=== PATIENT | male | born 1945 | race African-American/Black ===

== ENCOUNTER 2021-06-13 16:23 | Observation (INO) | payer MEDICARE, OTHER ==
[~2021-06-13] VITALS: Ht 188 cm; Wt 81.1 kg
[2021-06-13] MEDS ORDERED: THEO400T4 PO (16:35)
[2021-06-13] MEDS ORDERED: ISOVUE-370 76% 100ML VIAL As Ordered ONE (16:50)
[2021-06-13 16:54] LABS: BASO % 0.2 % (0.0-1.0); EOS # 0.1 10^3/uL (0.0-0.5); EOS % 3.4 % (0.0-3.0); HEMATOCRIT 40.1 % (42.0-52.0); HEMOGLOBIN 13.6 g/dl (13.5-17.5); LYMPH # 1.4 10^3/uL (1.5-5.0); LYMPH % 33.3 % (24.0-44.0); MEAN CORPUSCULAR HEMOGLOBIN 32.7 pg (27.0-33.0); MEAN CORPUSCULAR HGB CONC 33.9 g/dl (32.0-36.5); MEAN CORPUSCULAR VOLUME 96.4 fl (80.0-96.0); MONO # 0.5 10^3/uL (0.0-0.8); NEUTROPHILS # 2.1 10^3/uL (1.5-8.5); NEUTROPHILS % 51.9 % (36.0-66.0); PLATELET COUNT, AUTOMATED 164 10^3/uL (150-450); RED BLOOD COUNT 4.16 10^6/uL (4.30-6.10); WHITE BLOOD COUNT 4.1 10^3/uL (4.0-10.0)
--- NOTE | 2021-06-13 17:00 | REP ---
INDICATION: CVA. COMPARISON: No comparison chest x-ray. TECHNIQUE: Portable upright AP chest radiograph. FINDINGS: The lungs are well inflated and clear. The pleural angles are sharp. Heart is enlarged. Pulmonary vasculature is not increased. Monitoring electrodes are seen. No acute bony abnormality.. IMPRESSION: Mild cardiomegaly. Otherwise no acute disease.. <Electronically signed by Luis Manuel Bolivar > 06/13/21 [id number]
--- NOTE | 2021-06-13 17:10 | REPVR ---
PROCEDURE INFORMATION: Exam: CT Head Without Contrast Exam date and time: 06/13/2021 4:54 PM Age: 76 years old Clinical indication: Weakness, facial; Additional info: CVA - nursing interventions must not delay CT TECHNIQUE: Imaging protocol: Computed tomography of the head without contrast. Radiation optimization: All CT scans at this facility use at least one of these dose optimization techniques: automated exposure control; mA and/or kV adjustment per patient size (includes targeted exams where dose is matched to clinical indication); or iterative reconstruction. Other technique: STROKE PROTOCOL was implemented. COMPARISON: No relevant prior studies available. FINDINGS: Brain: No intracranial mass, mass effect or midline shift. No acute intracranial hemorrhage. No CT evidence of acute cortical infarct. Ventricles, cisterns, and sulci are normal in size for age. No concerning asymmetric abnormal MCA density. Physiologic basal ganglia calcifications are present. Paranasal sinuses: Imaged paranasal sinuses are normally aerated. Mastoid air cells: Mastoid air cells and middle ear structures are normally aerated. Orbital cavity: Imaged orbits are unremarkable. Bones/joints: No calvarial fracture or destructive process. Soft tissues: No focal extracranial soft tissue swelling. IMPRESSION: No acute or concerning focal intracranial abnormality. ASSESSMENT: ASPECTS ([place] Stroke Program Early CT Score) is 10. Electronically signed by: Vince Wild On 06/13/2021 17:09:40 PM
[2021-06-13 17:20] LABS: INR 0.92; PROTHROMBIN TIME 12.6 SECONDS (12.5-14.3)
--- NOTE | 2021-06-13 17:20 | REPVR ---
PROCEDURE INFORMATION: Exam: CT Angiography Neck With Contrast Exam date and time: 06/13/2021 4:54 PM Age: 76 years old Clinical indication: Weakness; Additional info: CVA - nursing interventions must not delay CT TECHNIQUE: Imaging protocol: Computed tomography angiography of the neck with contrast. 3D rendering (Not supervised by radiologist): MIP and/or 3D reconstructed images were created by the technologist. Radiation optimization: All CT scans at this facility use at least one of these dose optimization techniques: automated exposure control; mA and/or kV adjustment per patient size (includes targeted exams where dose is matched to clinical indication); or iterative reconstruction. Contrast material: ISOVUE 370; Contrast volume: 75 ml; Contrast route: INTRAVENOUS (IV); COMPARISON: [facility] PORTABLE CHEST X-RAY 06/13/2021 4:40 PM FINDINGS: Right common carotid, cervical ICA and proximal ECA demonstrate contrast opacification with no occlusion, flow limiting stenosis, or intimal flap to suggest dissection. Left common carotid, cervical ICA and proximal ECA demonstrate contrast opacification, with no occlusion, flow limiting stenosis, or intimal flap to suggest dissection. Negligible left carotid bulb plaque with no flow limitation Vertebral arteries are bilaterally diminutive, but demonstrate normal course to the level of the skull base and show no occlusion, focal flow limiting stenosis or dissection. No flow limiting stenosis or anomaly of the great vessel origins. No concerning asymmetric neck soft tissue abnormality. Multi-level cervical degenerative disc and articular pillar arthropathy is present. IMPRESSION: No abnormality of the cervical carotid arteries, with only negligible plaque at the left carotid bulb. Diminutive bilateral vertebral arteries, which appears to be developmental. No focal stenosis or occlusive lesion. Multilevel cervical spine degenerative changes REFERENCES: NASCET CRITERIA. The degree of internal carotid artery stenosis is based on NASCET criteria. Normal is no stenosis. Mild is less than 50% stenosis. Moderate is 50-69% stenosis. Severe is 70% to 99% stenosis. Total occlusion is no detectable patent lumen. Electronically signed by: Vince Wild On 06/13/2021 17:20:02 PM
[2021-06-13 17:21] LABS: PARTIAL THROMBOPLASTIN TIME 24.8 SECONDS (24.2-38.5)
[2021-06-13 17:22] LABS: CK-MB VALUE MASS < 1.0 NG/ML (<3.6); CPK CREATINE PHOSPHOKINASE 109 U/L (39-308); MB/CK RELATIVE INDEX 0.92 (< OR =4); TROPONIN I < 0.02 NG/ML (< 0.10)
--- NOTE | 2021-06-13 17:24 | REPVR ---
She the PROCEDURE INFORMATION: Exam: CT Angiography Head With Contrast, Arteriography Exam date and time: 06/13/2021 4:54 PM Age: 76 years old Clinical indication: Weakness; Additional info: CVA - nursing interventions must not delay CT TECHNIQUE: Imaging protocol: Computed tomography angiography of the head with contrast. Exam focused on the arteries. 3D rendering (Not supervised by radiologist): MIP and/or 3D reconstructed images were created by the technologist. Radiation optimization: All CT scans at this facility use at least one of these dose optimization techniques: automated exposure control; mA and/or kV adjustment per patient size (includes targeted exams where dose is matched to clinical indication); or iterative reconstruction. Contrast material: ISOVUE 370; Contrast volume: 75 ml; Contrast route: INTRAVENOUS (IV); COMPARISON: No relevant prior studies available. FINDINGS: Ventricles, cisterns and sulci are symmetric and appropriate for age. No intracranial mass or focal mass effect. No intracranial hemorrhage, midline shift or acute territorial infarct. Anterior circulation: Normal contrast opacification and luminal caliber in the petrous, cavernous and supraclinoid internal carotid arteries. Normal appearance of the anterior cerebral artery branches and middle cerebral artery branches through the MCA trifurcations. No occlusion, high-grade focal stenosis or dissection. No aneurysm. Posterior circulation: Distal vertebral arteries are symmetrically diminutive but enhance normally to the vertebrobasilar junction. Normally enhancing, diminutive basilar artery, and normal superior cerebellar and posterior cerebral arteries. No occlusion, high-grade stenosis or aneurysm. Dural sinuses enhance normally. Bony structures show no acute fracture or destructive process. IMPRESSION: No intracranial large vessel arterial occlusive or focal stenotic lesion and no evidence of wwbtwv-tv-Qwpeko aneurysm or dural venous sinus thrombosis. Diminutive vertebral and basilar arteries but with no occlusive lesion involving the posterior circulation ASPECTS ([place] Stroke Program Early CT Score) is 10. Electronically signed by: Vince Wild On 06/13/2021 17:24:12 PM
[2021-06-13 17:35] LABS: RSV AMPLIFICATION NEGATIVE (NEGATIVE)
[2021-06-13] MEDS ORDERED: XALA0.007 OU (17:42)
--- NOTE | 2021-06-13 18:34 | HPEPDOC ---
[facility] Medical History & Physical Date of Admission Jun 13, 2021 Date of Service: Jun 13, 2021 Attending Physician: YU TAY DO History and Physical CHIEF COMPLAINT: Left-sided facial droop, speech difficulties, right-sided upper extremity weakness HISTORY OF PRESENT ILLNESS: Patient is a 76-year-old male who presented to the emergency department with a 15-minute long episode of left-sided facial droop and right-sided arm weakness. Patient states that he was sitting watching TV when he began to experience the symptoms. Patient started drooling out of the left side of his mouth. The symptoms started approximately at 1500 today, 06/13/2021. Patient also had speech difficulties which lasted slightly longer lasting about 25 to 30 minutes. Patient's called EMS and upon their arriva l, the patient's symptoms have resolved. Patient came into the emergency department where his symptoms had resolved. Patient had CT scans of the head and CT angiogram of the head and neck which did not show any evidence of bleeding or large vessel occlusion. Patient says he is otherwise feeling well and has no other complaints at this time. Patient states that the symptoms have resolved. Patient will be admitted for TIA work-up PAST MEDICAL HISTORY: 1. Asthma. PAST SURGICAL HISTORY: 1. Esophageal dilatation due to difficulty swallowing. SOCIAL HISTORY: Patient lives in [place] at home with his . Patient denies smoking cigarettes or doing any illicit drug use. Patient says he drinks about 1.75 L of vodka a week. Patient denies having any drinks today. 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 REVIEW OF SYSTEMS: General: Patient denies fevers HEENT: Patient denies headaches Cardiovascular: Patient denies chest pain Respiratory: Patient denies shortness of breath, cough GI: Patient denies abdominal pain, nausea, vomiting, diarrhea : Patient denies increased frequency or pain with urination Extremities: Patient denies swelling or pain in extremities Neurological: Patient denies numbness or tingling in legs Skin: Patient denies any new rashes or lesions. Hematologic: Patient denies any easy bruising. Lymphatic: Patient denies any lumps lumps or bumps in neck, axilla, or groin HOME MEDICATIONS: Please see below. PHYSICAL EXAMINATION: VITAL SIGNS: Temperature 98.2, pulse 58, respiratory rate 20, blood pressure 145/90, pulse oximetry 99% on room air. General: Alert and oriented male patient who is sitting up in bed when I walked in the room. Patient not appear to be in any acute distress HEENT: Normocephalic, atraumatic, moist mucous membranes. Neck: No lymphadenopathy or thyromegaly Cardiac: Regular rate and rhythm, no murmurs, normal S1, normal S2 Pulm: Clear to auscultation bilaterally. No wheezes, rhonchi, rales Abd: Nondistended, nontender to palpation, normal bowel sounds Ext: No edema bilateral lower extremities Neuro: Patient had equal strength in upper and lower extremities bilaterally. Patient reported sensation to light touch in upper and lower extremities bilaterally. Smleqt-sy-ipqv and hnte-gl-otwd testing normal. No pronator drift. Cranial nerves III through XII intact bilaterally. Skin: Skin of the head, neck, abdomen, upper and lower extremities, and back was examined not show any evidence of rash or lesion LABORATORY DATA: See below. IMAGING: Chest x-ray performed on 06/13/2021 was reported to show mild cardiomegaly. Otherwise no acute disease. CT angiogram of the head performed on 06/13/2021 was reported to show no i ntracranial large vessel arterial occlusive or focal stenotic lesion and no evidence of [place] aneurysm or dural venous sinus thrombosis. Diminutive vertebral and basilar arteries but with no occlusive lesion involving the posterior circulation. CT of the head performed without contrast on 06/13/2021 was reported to show no acute or concerning focal intracranial abnormality. CT angiogram of the neck performed on 06/13/2021 was reported to show no abnormality of the cervical carotid arteries, with only negligible plaque at the left carotid bulb. Diminutive bilateral vertebral arteries which appear to be developmental. No focal stenosis or occlusive lesion. Multilevel cervical sp ine degenerative changes. MICROBIOLOGY: Please see below. ASSESSMENT: Patient is a 76-year-old male who presented today with a 15-minute episode of left facial droop and right arm weakness and a 30-minute episode of speech difficulties which resolved upon arrival of EMS and continued to be normal in the emergency department.. . PLAN: 1. Transient ischemic attack. Patient will be admitted on telemetry. Echocardiogram and MRI of the brain have been ordered. Patient will be started on aspirin and Plavix which can be changed to aspirin upon the patient's discharge. I did speak with neurology who made additional recommendations. Patient will most likely need follow-up with outpatient neurology. Neurochecks every 4 hours. 2. Asthma. Patient does not appear in exacerbation today. Patient is only on theophylline. 3. DVT prophylaxis: Lovenox 4. CODE STATUS: Full code Disposition: Patient will be admitted to the medical surgical floor telemetry under observation. Patient will most likely be discharged tomorrow. Vital Signs Vital Signs Date Time Temp Pulse Resp B/P (MAP) Pulse Ox O2 Delivery O2 Flow Rate FiO2 06/13/21 17:45 58 145/90 (108) 99 Room Air 06/13/21 16:25 98.2 20 Laboratory Data Labs 24H Laboratory Tests 2 06/13/21 16:41: Immature Granulocyte % (Auto) 0.2, Neutrophils (%) (Auto) 51.9, Lymphocytes (%) (Auto) 33.3, Monocytes (%) (Auto) 11.0H, Eosinophils (%) (Auto) 3.4H, Basophils (%) (Auto) 0.2, Neutrophils # (Auto) 2.1, Lymphocytes # (Auto) 1.4L, Monocytes # (Auto) 0.5, Eosinophils # (Auto) 0.1, Basophils # (Auto) 0.0, Nucleated Red [place]oo d Cells % (auto) 0.0, Prothrombin Time 12.6, Prothromb Time International Ratio 0.92, Activated Partial Thromboplast Time 24.8L, Total Creatine Kinase 109, Creatine Kinase MB < 1.0, Creatine Kinase MB Relative Index 0.92, Troponin I < 0.02 06/13/21 16:44: POC Glucose (Misc Panel) 81, POC Sodium (Misc Panel) 143, POC Potassium (Misc Panel) 4.1, POC Chloride (Misc Panel) 106, POC Total CO2 (Misc Panel) 23.0, POC Blood Urea Nitrogen (Misc Panel 16, POC Ionized Calcium (Misc Panel) 4.5, POC Creatinine (Misc Panel) 0.9, POC Hematocrit (Misc Panel) 42.0 06/13/21 16:47: Coronavirus (COVID-19)(PCR) NEGATIVE, Influenza Type A (RT-PCR) NEGATIVE, Influenza Type B (RT-PCR) NEGATIVE, Respiratory Syncytial Virus (PCR) NEGATIVE CBC/BMP Laboratory Tests 06/13/21 16:41 Home Medications Scheduled Latanoprost (Xalatan) 0.005% 2.5ML Drops, 1 DROP OU QHS Theophylline Anhydrous (Theophylline) 400 Mg Tab.er.24h, 200 MG PO DAILY TAKES 200MG TABLETS Allergies Coded Allergies: No Known Allergies (Unverified , 06/13/21) A-FIB/CHADSVASC A-FIB History Current/History of A-Fib/PAF?: No YU TAY DO Jun 13, 2021 18:34
[2021-06-13] MEDS: ASPIRIN 81MG ENTERIC TABLET PO SCH (19:26)
[2021-06-13] MEDS: CLOPIDOGREL 75 MG TAB PO SCH (19:26)
[2021-06-13] MEDS ORDERED: LATANOPROST 0.005% OPHTH SOLN 2.5 ML OU SCH (21:00)
[2021-06-13 21:20] VITALS: BP 148/87
--- NOTE | 2021-06-13 21:44 | REPVR ---
PROCEDURE INFORMATION: Exam: MR Head Without Contrast Exam date and time: 06/13/2021 6:22 PM Age: 76 years old Clinical indication: Other: CVA; Additional info: TIA TECHNIQUE: Imaging protocol: MR of the head without contrast. COMPARISON: CT Head without contrast 06/13/2021 4:48 PM FINDINGS: No abnormal restriction of diffusion to indicate acute CVA. Midline structures and cerebellar tonsillar position appear normal. Ventricles, cisterns and sulci are symmetric and normal for age. No intracranial mass, midline shift or abnormal extra-axial fluid. No acute intracranial hemorrhage or hemosiderin deposition. Minimal punctate foci of increased T2 and flair signal in supratentorial white matter. Optic chiasm and pituitary infundibulum appear normal. Normal vascular flow voids in major intracranial arteries and dural venous sinuses. Paranasal sinuses are normal aside from mild inferior maxillary mucosal thickening. Mastoid air cells are normally aerated. Optic globes and orbits are unremarkable. IMPRESSION: Unremarkable noncontrast MRI of the brain. Minimal punctate foci of chronic microangiopathic disease within supratentorial white matter, compatible with age Electronically signed by: Vince Wild On 06/13/2021 21:43:45 PM
[2021-06-14 01:30] VITALS: BP 145/86
[2021-06-14 06:00] VITALS: BP 142/85
[2021-06-14 06:31] LABS: HEMATOCRIT 38.4 % (42.0-52.0); MEAN CORPUSCULAR HEMOGLOBIN 32.7 pg (27.0-33.0); MEAN CORPUSCULAR HGB CONC 33.9 g/dl (32.0-36.5); MEAN CORPUSCULAR VOLUME 96.5 fl (80.0-96.0); PLATELET COUNT, AUTOMATED 158 10^3/uL (150-450); RED BLOOD COUNT 3.98 10^6/uL (4.30-6.10)
[2021-06-14 06:50] LABS: HEMOGLOBIN A1c 5.4 %
[2021-06-14 06:59] LABS: BLOOD UREA NITROGEN 12 MG/DL (7-18); CALCIUM LEVEL 8.3 MG/DL (8.8-10.2); CARBON DIOXIDE LEVEL 27 MEQ/L (21-32); CHLORIDE LEVEL 109 MEQ/L (98-107); CHOLESTEROL LEVEL 204 MG/DL (<200); CHOLESTEROL RISK RATIO 2.582 (<5); CREATININE FOR GFR 0.93 MG/DL (0.70-1.30); GLOMERULAR FILTRATION RATE > 60.0 (>42); GLUCOSE, FASTING 86 MG/DL (70-100); HDL CHOLESTEROL 79 MG/DL (>40); LDL CHOLESTEROL 114 MG/DL (<100); MAGNESIUM LEVEL 2.1 MG/DL (1.8-2.4); NON-HDL-C 125 MG/DL; POTASSIUM SERUM 3.7 MEQ/L (3.5-5.1); SODIUM LEVEL 141 MEQ/L (136-145); TRIGLYCERIDES LEVEL 56 MG/DL (<150)
[2021-06-14] MEDS: CLOPIDOGREL 75 MG TAB PO SCH (08:19)
[2021-06-14] MEDS: ASPIRIN 81MG ENTERIC TABLET PO SCH (08:19)
[2021-06-14] MEDS ORDERED: ENOXAPARIN 40MG/0.4ML SYRINGE (J1650 PER 10MG) SC SCH (09:00)
[2021-06-14 10:00] VITALS: BP 138/82
[2021-06-14] MEDS ORDERED: CLOP75TA2 PO (13:00)
[2021-06-14] MEDS ORDERED: ASPI-551 PO (13:00)
--- NOTE | 2021-06-14 13:05 | DS.PDOC ---
Discharge Summary General Date of Admission Jun 13, 2021 at 18:09 Date of Discharge 06/14/2021 Attending Physician: YU TAY DO Discharge Summary PROCEDURES PERFORMED DURING STAY: None. ADMITTING DIAGNOSES: 1. TIA. 2. Asthma DISCHARGE DIAGNOSES: 1. TIA. 2. Asthma COMPLICATIONS/CHIEF COMPLAINT: TIA. HISTORY OF PRESENT ILLNESS: Patient is a 76-year-old male who is visiting the area on vacation who is from [place], [place] who presented to the emergency department after having slurred speech, left-sided facial droop, and right-sided weakness in his arm that started at 1500 on 06/13/2021. Patient states that he was watching TV with his when he started noticing the symptoms. Patient's called EMS. The left-sided facial droop and the right-sided arm weakness lasted for approximately 15 minutes. Patient's says the speech difficulties and slurred speech lasted for about 25 to 30 minutes. By the time EMS had arrived, the patient's symptoms had resolved. Patient reported to the emergency department where stroke work-up was negative. Patient was admitted for TIA. Patient's NIH stroke scale was 0 at the time of admission HOSPITAL COURSE: Patient did well overnight did not have any recurrence of his symptoms. Patient did not have any events on telemetry. MRI of the brain was performed and did not show any evidence of acute CVA. Echocardiogram was performed but had not been read at the time of discharge. Patient was feeling well. Patient was started on aspirin and Plavix which he can continue for the next 30 days after which she can only take a baby aspirin. Patient had a negative A1c at 5.4. Patient's lipid panel shows that the patient's LDL was mildly elevated and this can be discussed with his primary care provider about possible statin therapy. Patient was deemed ready for discharge and was discharged home on 06/14/2021. DISCHARGE MEDICATIONS: Please see below. ALLERGIES: Please see below. PHYSICAL EXAMINATION ON DISCHARGE: VITAL SIGNS: Please see below. General: Alert and oriented male patient who was sitting up in bed. Patient did not appear to be in any acute distress HEENT: Normocephalic, atraumatic, moist mucous membranes. Neck: No lymphadenopathy or thyromegaly Cardiac: Regular rate and rhythm, no murmurs, normal S1, normal S2 Pulm: Clear to auscultation bilaterally. No wheezes, rhonchi, rales Abd: Nondistended, nontender to palpation, normal bowel sounds Ext: No edema bilateral lower extremities Neuro: Patient had equal strength in upper and lower extremities bilaterally. Patient reported sensation to light touch in upper and lower extremities bilaterally. Cranial nerves III through XII intact bilaterally LABORATORY DATA: Please see below. IMAGING: Chest x-ray performed on 06/13/2021 was reported to show mild cardiomegaly. Otherwise no acute disease. CT angiogram of the head performed on 06/13/2021 was reported to show no intracranial large vessel arterial occlusive or focal stenotic lesion and no evidence of [place] of [place] aneurysm or dural venous sinus thrombosis. Diminutive vertebral and basilar arteries but with no occlusive lesion involving the posterior circulation. CT of the head performed without contrast on 06/13/2021 was reported to show no acute or concerning focal intracranial abnormality. CT angiogram of the neck performed on 06/13/2021 was reported to show no abnormality of the cervical carotid arteries, with only negligible plaque at the left carotid bulb. Diminutive bilateral vertebral arteries which appear to be developmental. No focal stenosis or occlusive lesion. Multilevel cervical spine degenerative changes. MRI of the brain performed without contrast on 06/13/2021 was reported to show unremarkable noncontrast MRI of the brain. Minimal punctate foci of chronic microangiopathic disease within supratentorial white matter, compatible with age PROGNOSIS: Good ACTIVITY: As tolerated. DIET: Regular DISCHARGE PLAN: Discharge home DISPOSITION: . DISCHARGE INSTRUCTIONS: 1. Follow-up with your primary care provider within 3 to 5 days of discharge. 2. Continue taking aspirin and Plavix for 30 days and then continue taking baby aspirin after that 3. Return to the emergency department if your symptoms worsen ITEMS TO FOLLOWUP ON ON OUTPATIENT: 1. Echocardiogram report and possible local neurology referral. DISCHARGE CONDITION: Stable. TIME SPENT ON DISCHARGE: 25 minutes. Vital Signs/I&Os Vital Signs Date Time Temp Pulse Resp B/P (MAP) Pulse Ox O2 Delivery O2 Flow Rate FiO2 06/14/21 10:00 97.5 64 17 138/82 (100) 96 Room Air I&O- Last 24 Hours up to 6 AM 06/14/21 06:00 Intake Total 60 ml Balance 60 ml Laboratory Data Labs 24H Laboratory Tests 2 06/13/21 16:41: Immature Granulocyte % (Auto) 0.2, Neutrophils (%) (Auto) 51.9, Lymphocytes (%) (Auto) 33.3, Monocytes (%) (Auto) 11.0H, Eosinophils (%) (Auto) 3.4H, Basophils (%) (Auto) 0.2, Neutrophils # (Auto) 2.1, Lymphocytes # (Auto) 1.4L, Monocytes # (Auto) 0.5, Eosinophils # (Auto) 0.1, Basophils # (Auto) 0.0, Nucleated Red Blood Cells % (auto) 0.0, Prothrombin Time 12.6, Prothromb Time International Ratio 0.92, Activated Partial Thromboplast Time 24.8L, Total Creatine Kinase 109, Creatine Kinase MB < 1.0, Creatine Kinase MB Relative Index 0.92, Troponin I < 0.02 06/13/21 16:44: POC Glucose (Misc Panel) 81, POC Sodium (Misc Panel) 143, POC Potassium (Misc Panel) 4.1, POC Chloride (Misc Panel) 106, POC Total CO2 (Misc Panel) 23.0, POC Blood Urea Nitrogen (Misc Panel 16, POC Ionized Calcium (Misc Panel) 4.5, POC Creatinine (Misc Panel) 0.9, POC Hematocrit (Misc Panel) 42.0 06/13/21 16:47: Coronavirus (COVID-19)(PCR) NEGATIVE, Influenza Type A (RT-PCR) NEGATIVE, Influenza Type B (RT-PCR) NEGATIVE, Respiratory Syncytial Virus (PCR) NEGATIVE 06/14/21 06:15: Nucleated Red Blood Cells % (auto) 0.0, Anion Gap 5L, Glomerular Filtration Rate > 60.0, Estimated Mean Plasma Glucose 108, Hemoglobin A1c 5.4, Calcium Level 8.3L, Magnesium Level 2.1, Triglycerides Level 56, Total Cholesterol 204H, LDL Cholesterol 114H, Non-HDL Cholesterol (LDL + VLDL) 125, Total HDL Cholesterol 79, Cholesterol/HDL Ratio 2.582 06/14/21 12:09: Lab Scanned Report Miscellaneous Lab CBC/BMP Laboratory Tests 06/13/21 16:41 06/14/21 06:15 Discharge Medications Scheduled Aspirin (Aspirin EC) 81 Mg Tablet.dr, 81 MG PO DAILY Clopidogrel Bisulfate (Clopidogrel) 75 Mg Tablet, 75 MG PO DAILY Latanoprost (Xalatan) 0.005% 2.5ML Drops, 1 DROP OU QHS, (Reported) Theophylline Anhydrous (Theophylline) 400 Mg Tab.er.24h, 200 MG PO DAILY, (Reported) TAKES 200MG TABLETS Allergies Coded Allergies: No Known Allergies (Unverified , 06/13/21) YU TAY DO Jun 14, 2021 13:05
[2021-06-14 14:00] VITALS: BP 133/81
--- NOTE | 2021-06-14 20:28 | ECGEPIP ---
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
== END 2021-06-14 16:55 | disposition home or self-care (01) ==
LOC: EDBD 16:23 → M ED 16:23 → M ED INP 18:09 → M MSPAV 21:22
PROVIDERS: ADMIT Family Medicine; ATTEND Family Medicine
DX: G45.9 Transient cerebral ischemic attack, unspecified (principal); J45.909 Unspecified asthma, uncomplicated; Z79.82 Long term (current) use of aspirin; Z79.899 Other long term (current) drug therapy
CPT/HCPCS: 36415; 70450; 70496; 70498; 70551; 71045; 80047; 80048; 80061; 82550; 82553; 83036; 83735; 84484; 85025; 85027; 85610; 85730; 86850; 86900; 86901; 87631; 93005; 93041; 93306; 94760; 96372; 99285; G0378; J1650; Q9967

== ENCOUNTER → 2024-09-09 | Outpatient (CLI) | payer MEDICARE, OTHER ==
[~2024-09-09] MED LIST: ASPI-551 PO; CLOP75TA2 PO; THEO400T4 PO; XALA0.007 OU
== END ==
LOC: M RAD 13:01
PROVIDERS: ATTEND Registered Nurse
DX: J20.9 Acute bronchitis, unspecified (principal)